=== PATIENT | male | born 1995 | race Caucasian/White ===

== ENCOUNTER → 2017-07-02 | Outpatient (CLI) | payer BC, OTHER ==
--- NOTE | 2017-07-02 10:23 | DIAGNOSTIC IMAGING REPORT ---
R HAND MIN 3 VIEWS CLINICAL HISTORY: Right hand pain status post trauma COMPARISON: None. DISCUSSION: No fractures or dislocations are visualized. IMPRESSION: No fractures or dislocations identified. Electronically signed by: Lito Szymanski M.D. 07/02/2017 10:22 AM Dictated Date/Time: 07/02/2017 10:21 AM
== END | disposition home or self-care (01) ==
LOC: C.RDSM 14:03
PROVIDERS: ATTEND Family Medicine
DX: M79.641 Pain in right hand (principal)